=== PATIENT | female | born 1940 | race Two or more races ===

== ENCOUNTER 2016-06-10 10:39 | Observation (INO) | payer MEDICARE, BC ==
[2016-06-10] MEDS ORDERED: CIPRO500 M2 PO (10:48)
[2016-06-10] MEDS ORDERED: SYNTHROID112 MC1 PO (10:48)
[2016-06-10] MEDS ORDERED: METRONIDAZOLE45 G1 TP (10:49)
[2016-06-10 11:10] LABS: BASO % 0.3 % (0-2); EOS % 1.4 % (0-7); EOSINOPHIL ABSOLUTE COUNT 0.1 tho/cmm (0.0-0.7); HCT-HEMATOCRIT 38.7 % (34.0-49.0); HGB-HEMOGLOBIN 12.7 gm/dl (12.0-15.5); IMMATURE GRANULOCYTES ABSOLUTE 0.01 tho/cmm (0-0.03); IMMATURE GRANULOCYTES PERCENT 0.1 % (0-0.3); LYMPH % 36.1 % (20-45); LYMPH ABSOLUTE COUNT 2.9 tho/cmm (0.8-4.5); MCH (MEAN CORPUSCULAR HGB) 29.5 pg (28.0-32.0); MCHC MEAN CORPUSCULAR HGB CONC 32.8 % (32.0-36.0); MEAN PLATELET VOLUME 9.3 cmc (9.4-12.4); MONO % 6.8 % (0-12); MONOCYTE ABSOLUTE COUNT 0.5 tho/cmm (0.0-1.2); NEUTROPHIL ABSOLUTE COUNT 4.4 tho/cmm (1.6-8.0); NEUTROPHIL-AUTOMATED 4.4 tho/cmm (1.6-8.0); NEUTROPHILS % 55.3 % (40-80); PLATELET COUNT 269 tho/cmm (150-450); RED CELL DISTRIBUTION WIDTH 13.9 % (12.4-16.4); WHITE BLOOD COUNT 7.9 tho/cmm (4.0-10.0)
[2016-06-10 11:35] LABS: ANION GAP 11 mmol/L (0-20); BLOOD UREA NITROGEN 23 mg/dl (6-24); CALCIUM 8.3 mg/dl (8.5-10.5); CARBON DIOXIDE-VENOUS 27 mmol/L (22-32); CHLORIDE 109 mmol/l (96-110); CREATININE 0.96 mg/dl (0.50-1.10); GLUCOSE 91 mg/dL (70-110); SODIUM 143 mmol/L (135-145); eGFR VALUE FOR BLACK 68 mL/Min
[2016-06-10 11:38] LABS: POTASSIUM 4.2 mmol/L (3.7-5.1)
[2016-06-11 01:14] LABS: CHOLESTEROL 182 mg/dl (120-200); HDL CHOLESTEROL 74 mg/dl (40-60); LDL CHOLESTEROL 94 mg/dl (0-99); TRIGLYCERIDES 71 mg/dl (<149); VLDL 14 mg/dl (0-30)
== END 2016-06-11 12:03 ==
LOC: EDMED 10:39 → EMR2 13:53 → 5WD 15:15
PROVIDERS: Emergency Medicine; ADMIT Internal Medicine
DX: R07.9 Chest pain, unspecified (principal); R09.89 Other specified symptoms and signs involving the circulatory and respiratory systems; E03.9 Hypothyroidism, unspecified; I35.1 Nonrheumatic aortic (valve) insufficiency; Z79.899 Other long term (current) drug therapy
CPT/HCPCS: A9500; G0378; J2270